=== PATIENT | male | born 1950 | race Caucasian/White ===

== ENCOUNTER 2017-04-21 11:09 | Day surgery (SDC) | payer OTHER ==
--- NOTE | 2017-04-21 08:34 | GHP ---
[f rep st] HISTORY AND PHYSICAL DATE OF ADMISSION: 04/21/2017 CURRENT COMPLAINT: Left knee fluid collection. HISTORY OF PRESENT ILLNESS: The patient is a 66-year-old male who has previously undergone bilateral total knee replacements. He had an infection noted on the right side. He has been on chronic antib iotics. Developed an area of fluctuance in the anterior portion of his knee medial to his patellar t endon. Aspiration revealed white blood cells but no organisms on Gram stain. However, he did subseq uently grow out Staph epidermidis. It was decided to take him to the operating room and do a formal irrigation and debridement. Allergies include hydrocodone. Current medications include atorvastatin , doxycycline, enalapril, metformin. Prior medical problems include diabetes, arthritis and sleep ap janelle. Prior surgeries include bilateral total knee replacements, right knee I and D, spine surgery, v ascular surgery to bilateral legs. He is a former smoker. Social drinker. On physical exam, pupils equal, round, and reactive to light. Chest clear to auscultation. Heart is regular rate and rhythm. Abdomen is soft and nontender. Left knee has a small area of fluctuant ma ss medial to the patellar tendon. ASSESSMENT AND PLAN: Patient is a rule out right knee infection. Plan is to take him to the operati ng room to undergo a formal irrigation and debridement. /[id number]/MODL
[~2017-04-21 11:09] MED LIST: ACETAMINOPHEN 500 MG TAB PO ONE; PREGABALIN 150 MG CAP PO ONE
[2017-04-21] MEDS ORDERED: PREGABALIN 150 MG CAP ONE (11:38)
[2017-04-21] MEDS ORDERED: ACETAMINOPHEN 500 MG TAB ONE (11:39)
[2017-04-21] MEDS ORDERED: LIDOCAINE 1% 2 ML INJ ONE (11:45)
[2017-04-21 11:56] VITALS: PULSE 66; TEMP 98.4
[2017-04-21] MEDS ORDERED: SODIUM HYPOCHLORITE (DAKINS 1/4 STR) 120 ML BTL TP ONE (12:00)
--- NOTE | 2017-04-21 12:15 | PDANEPAE ---
ANE History of Present Illness i&d knee ANE Past Medical History - Cardiovascular History Hx Hypertension: Yes Hx Arrhythmias: No Hx Chest Pain: No Hx Coronary Artery / Peripheral Vascular Disease: No Hx CHF / Valvular Disease: No Hx Palpitations: No Cardiovascular History Comment: NO CP. HIGH CHOL - Pulmonary History Hx COPD: No Hx Asthma/Reactive Airway Disease: No Hx Recent Upper Respiratory Infection: No Hx Oxygen in Use at Home: No Hx Sleep Apnea: No Sleep Apnea Screening Result - Last Documented: Positive Pulmonary History Comment: NO SOB W STAIRS - Neurologic History Hx Cerebrovascular Accident: No Hx Seizures: No Hx Dementia: No - Endocrine History Hx Diabetes: Yes Endocrine History Comment: type 2 - Renal History Hx Renal Disorders: No Renal History Comment: UTI [place], [place] - Liver History Hx Hepatic Disorders: No - Neurological & Psychiatric Hx Hx Neurological and Psychiatric Disorders: No - Cancer History Hx Cancer: No - Congenital Disorder History Hx Congenital Disorders: No - GI History Hx Gastrointestinal Disorders: No - Other Health History Other Health History: HX FX TIBIA, BRACE [place] '. PERM BRIDGES UPPER AND LOWER - Chronic Pain History Chronic Pain: No (R KNEE) - Surgical History Prior Surgeries: L TKA . L KNEE X2. L LEG VEIN STRIPPING X2. LAMI T3-4 ANE Review of Systems Review of Systems: - Exercise capacity METS (RN): 4 METS ANE Patient History - Allergies Allergies/Adverse Reactions: hydrocodone bitartrate [From [place]] Allergy (Severe, Verified 04/20/17 17:50) Hives - Home Medications Home Medications: Enalapril Maleate [Vasotec 20 MG (*)] 07/17/12 [Last Taken 04/21/17] metFORMIN HCL [Glucophage 1000 mg] 07/17/12 [Last Taken 04/20/17] Aspirin EC [Aspirin EC 81 mg (*)] 02/12/15 [Last Taken 04/14/17] Atorvastatin Calcium 04/20/17 [Last Taken 04/21/17] [place]-3 Fatty Acids [Fish Oil 1000 mg (*)] 04/20/17 [Last Taken 04/20/17] - NPO status NPO Since - Liquids (Date): 04/21/17 NPO Since - Liquids (Time): 09:15 NPO Since - Solids (Date): 04/21/17 NPO Since - Solids (Time): 04:00 - Smoking Hx Smoking Status: Former smoker - Family Anes Hx Family Hx Anesthesia Complications: NONE ANE Labs/Vital Signs - Labs Result Diagrams: 04/21/17 12:05 - Vital Signs Blood Pressure: 134/74 Heart Rate: 66 Respiratory Rate: 14 O2 Sat (%): 96 Height: 193.04 cm Weight: 119.295 kg ANE Physical Exam - Airway Mallampati Score: Class 2 Mouth exam: normal dental/mouth exam - Pulmonary Pulmonary: no respiratory distress - Cardiovascular Cardiovascular: regular rate and rhythym - ASA Status ASA Status: II, III ANE Anesthesia Plan Anesthesia Plan: GA w LMA
[2017-04-21] MEDS ORDERED: BUPIVACAINE/EPI 0.5% 30 ML SDV ONE (12:21)
[2017-04-21] MEDS ORDERED: MIDAZOLAM 2 MG/2 ML VIAL IVP ONE (12:31)
[2017-04-21] MEDS ORDERED: POLYMYXIN B SULFATE 500,000 UNIT/10 ML SYR IRR ONE (12:34)
[2017-04-21] MEDS ORDERED: BACITRACIN 50,000 UNITS/10 ML SYR IRR ONE (12:34)
[2017-04-21] MEDS ORDERED: LIDOCAINE 2% 5 ML SDV ONE (12:47)
[2017-04-21] MEDS ORDERED: PROPOFOL 200 MG/20 ML VIAL ONE (12:47)
[2017-04-21] MEDS ORDERED: DEXAMETHASONE 4 MG/ML VIAL ONE (12:47)
[2017-04-21] MEDS ORDERED: HYDROmorphONE/DILAUDID 2 MG/ML INJ ONE (12:47)
--- NOTE | 2017-04-21 13:43 | PDHPUP ---
History & Physical Update H&P update statement: This history and physical update is based on an assessment of the patient which was completed after admission or registration (within 24 hours), but prior to the surgery/procedure. H&P update: H&P reviewed & patient examined, no change in patient's condition since H&P completed
[2017-04-21] MEDS ORDERED: ceFAZolin 1 GM VIAL ONE ×2 (13:53)
[2017-04-21] MEDS ORDERED: ONDANSETRON 4 MG/2 ML VIAL ONE (14:08)
[2017-04-21] MEDS ORDERED: KETOROLAC 30 MG/1 ML SDV ONE (14:08)
[2017-04-21] MEDS ORDERED: ALBUTEROL 3 ML DEYVIAL IH PRN (14:38)
[2017-04-21] MEDS ORDERED: NALOXONE HCL 0.4 MG/ML INJ IVP PRN (14:38)
[2017-04-21] MEDS ORDERED: OXYCODONE/APAP 5/325 TAB PO PRN (14:38)
[2017-04-21] MEDS ORDERED: ONDANSETRON 4 MG/2 ML VIAL IVP PRN ×2 (14:38→14:57)
[2017-04-21] MEDS ORDERED: HYDROmorphONE/DILAUDID 2 MG/ML INJ IVP PRN (14:38)
[2017-04-21] MEDS ORDERED: MAGNESIUM HYDROXIDE 30 ML UDCUP PO PRN (14:57)
[2017-04-21] MEDS ORDERED: ONDANSETRON DISINTEGRATING 4 MG TAB PO PRN (14:57)
[2017-04-21] MEDS ORDERED: diphenhydrAMINE 25 MG CAP PO PRN (14:57)
[2017-04-21] MEDS ORDERED: CYCLOBENZAPRINE 10 MG TAB PO PRN (14:57)
[2017-04-21] MEDS ORDERED: PROMETHAZINE HCL 25 MG/ML INJ IVP PRN (14:57)
[2017-04-21] MEDS ORDERED: POLYETHYLENE GLYCOL 3350 17 GM PKT PO PRN (14:57)
[2017-04-21] MEDS ORDERED: BISACODYL 10 MG SUPP PR PRN (14:57)
[2017-04-21] MEDS ORDERED: KETOROLAC 30 MG/1 ML SDV IVP PRN (14:57)
[2017-04-21] MEDS ORDERED: METOCLOPRAMIDE 10 MG/2 ML VIAL IVP PRN (14:57)
[2017-04-21] MEDS ORDERED: oxyCODONE IR 5 MG TAB PO PRN (14:57)
[2017-04-21] MEDS ORDERED: TAPENTADOL HCL 50 MG TAB PO PRN (14:57)
[2017-04-21] MEDS ORDERED: LACTULOSE 20 GM/30 ML UDCUP PO PRN (14:57)
[2017-04-21] MEDS ORDERED: PROMETHAZINE HCL 25 MG SUPPR PR PRN (14:57)
[2017-04-21] MEDS ORDERED: DIPHENOXYLATE/ATROPINE LOMOTIL 1 TAB PO PRN (14:57)
[2017-04-21] MEDS ORDERED: TEMAZEPAM 15 MG CAP PO PRN (14:57)
--- NOTE | 2017-04-21 14:57 | POSTOPPROG ---
Post Op Note Date of Operation: 04/21/17 Surgeon: Karoline Hayes Anesthesiologist: gabriel Anesthesia: LMA Pre-op Diagnosis: l knee infxn Procedure: l knee I&D Inf/Abcess present in the surg proc area at time of surgery?: Yes Depth: Deep Incisional (Fascial) EBL: 100-500 Drains: [place]
[2017-04-21] MEDS ORDERED: LR 1,000 ML IV SCH (15:00)
--- NOTE | 2017-04-21 15:00 | POSTANESTH ---
Post Anesthetic Evaluation Cardiovascular Status: Normal, Stable Respiratory Status: Normal, Stable Level of Consciousness/Mental Status: Can Participate in Eval Pain Control: Adequate, Prn Tx Ordered Nausea/Vomiting Control: Adequate, Prn Tx Ordered Complications Possibly Related to Anesthesia: None Noted
[2017-04-21] MEDS ORDERED: cefTRIAXone 2 GM in STERILE WATER INJ 20 ML IV ONE (15:45)
--- NOTE | 2017-04-21 15:46 | GOP ---
[f rep st] OPERATIVE REPORT DATE OF OPERATION: 04/21/2017 SURGEON: Karoline Hayes MD ANESTHESIA: LMA. PREOPERATIVE DIAGNOSIS: Left knee infection. POSTOPERATIVE DIAGNOSIS: Left knee infection. PROCEDURE PERFORMED: Irrigation and debridement of left knee. FINDINGS: INDICATIONS: This is a 66-year-old male, who has had a remote history of a left total knee replaceme nt. He is on chronic antibiotic suppression secondary to a right knee infection over a year ago. He developed an area of fluctuance on the anterior portion of the knee, was aspirated and found to have Staph epidermidis grow out on cultures, decided do a formal irrigation and debridement. DESCRIPTION OF PROCEDURE: Patient brought to the operating room after the left side had been identif ied as correct side by the patient, nurse and physician. Once in the operating room, he had a tourni quet placed around the upper portion of the left thigh after going to sleep using LMA. He then had t he left lower extremity sterilely prepped and draped in usual fashion using GSI solution. Once prepp ed and draped, the limb was elevated for 2 minutes and the tourniquet inflated to 250 mmHg. Using th e prior incision at its anterior portion, sharp dissection was carried down through the skin and subc utaneous layers, identifying the extensor mechanism. Dissection was then carried medially toward the area of fluctuance. He was found to have an area of cloudy serous fluid. Cultures were taken and s ent to the lab. Further exploration revealed a sinus going medially in the subcutaneous tissue as we ll as an open area in the anterior medial portion of the knee. The area was encapsulated and there w as no found access into the actual knee joint itself. The areas around the capsule were debrided usi ng a curette until removing all of the fibrinous tissue. The wound was then thoroughly irrigated wit h 1 L of Dakin's solution into the sinuses and in the open area, and then 3 L of antibiotic solution were irrigated through the area also. One quarter-inch Carol Ann drain was then placed along the media l sinus, was sewn into place outside of the actual wound. The wound was then closed in layers to inc lude 0 Vicryl suture for the extensor mechanism that was opened, 3-0 Vicryl suture for the subcutaneo us layers, and 4-0 Monocryl suture in a running subcuticular stitch for the skin. The wound was dres sed with Steri-Strips, Xeroform, 4x4s, and Kerlix. The tourniquet had been deflated already at 30 mi nutes. Leg was completely undraped in the operating room, tourniquet removed from the thigh, and an Michael wrap placed around the knee. The patient was then woken up, extubated, transferred onto a [facility], and sent to recovery room in good condition. TOURNIQUET TIME: 30 minutes. /[id number]/MODL
[2017-04-21 15:49] VITALS: RESP 12
[2017-04-21 16:03] VITALS: BP 149/72
[2017-04-21 16:23] VITALS: O2SAT 92
[2017-04-21] MEDS ORDERED: ACETAMINOPHEN 325 MG TAB PO SCH (18:00)
[2017-04-21] MEDS ORDERED: traMADol 50 MG TAB PO SCH (18:00)
[2017-04-21] MEDS ORDERED: FAMOTIDINE 20 MG TAB PO SCH (21:00)
[2017-04-21] MEDS ORDERED: SENNOSIDES/DOCUSATE SODIUM TAB PO SCH (21:00)
== END 2017-04-21 16:55 | disposition home or self-care (01) ==
LOC: FSGY 11:09
PROVIDERS: ATTEND Orthopaedic Surgery
PROC: 0J9P0ZZ Drainage of Left Lower Leg Subcutaneous Tissue and Fascia, Open Approach (ICD-10-PCS; principal; 2017-04-21 12:45)
DX: T84.54XA Infection and inflammatory reaction due to internal left knee prosthesis, initial encounter (principal); Z96.652 Presence of left artificial knee joint; Z87.891 Personal history of nicotine dependence
CPT/HCPCS: J0690; J0696; J1100; J1170; J1885; J2250; J2405; J2704

== ENCOUNTER 2017-05-09 09:48 | Inpatient (IN) | payer OTHER ==
--- NOTE | 2017-05-08 15:24 | GHP ---
[f rep st] PREOP HISTORY AND PHYSICAL DATE OF ADMISSION: 05/09/2017 DIAGNOSIS: Left knee infection with possible infection of left total knee replacement. PLANNED SURGERY: Left knee I and D with possible removal of total knee replacement and implantation of antibiotic spacer. HISTORY OF PRESENT ILLNESS: Patient is a 66-year-old male with a long history of left knee pain. Se veral weeks ago, he underwent an I and D procedure for an infection in the soft tissues of the left k nee. Subsequently, he continued to have drainage through the FRANCISCA drain of purulent fluid, and it was felt the infection could be spreading toward the knee replacement or may even involve the joint itsel f. After 2 weeks, the decision was made to proceed forward with a second I and D and possibly to exp lant the total knee replacement and to place an antibiotic spacer. The patient is in agreement with this plan. PAST SURGICAL HISTORY: History of right knee replacement, left knee replacement, removal of a synovi al plica, history of low back surgery. PAST MEDICAL HISTORY: Hypertension, hypercholesterolemia, type 2 diabetes, and obesity. MEDICATIONS: Atorvastatin, cephalexin, doxycycline, enalapril, metformin, oxycodone, and tramadol. SOCIAL HISTORY: No alcohol, tobacco, or drug use. PHYSICAL EXAM: GENERAL: He is alert and oriented. NECK: Supple. No carotid bruits are heard. CA RDIAC: Regular rate and rhythm. Normal S1, S2. PULMONARY: Lungs are clear bilaterally. ABDOMEN: Normoactive bowel sounds. Nontender, nondistended. EXTREMITIES: The left knee shows the incision from prior surgery to be healing well. There continues to be purulent drainage from the inferior por valentina of the incision where it was left open. Range of motion is full. There is moderate diffuse swel ling throughout the leg. There is no evidence of DVT. He is neurovascularly intact. ASSESSMENT AND PLAN: Patient presents with a soft tissue infection, possibly within the joint. Afte r a course of conservative treatment including a long course of antibiotics, we are now proceeding fo rward with a second incision and drainage procedure and possible explantation of the total knee repla cement. This was all discussed with the patient in detail, and he accepts the risks and benefits of the surgery. /[id number]/MODL
[2017-05-09] MEDS ORDERED: SODIUM HYPOCHLORITE (DAKINS 1/4 STR) 120 ML BTL IRR PRN (10:00)
[2017-05-09] MEDS ORDERED: LR 1,000 ML IV ONE (10:12)
[2017-05-09] MEDS ORDERED: LIDOCAINE 1% 2 ML INJ ID PRN (10:12)
[2017-05-09] MEDS ORDERED: POLYMYXIN B SULFATE 500,000 UNIT/10 ML SYR IRR ONE ×2 (11:05→11:09)
[2017-05-09] MEDS ORDERED: BACITRACIN 50,000 UNITS/10 ML SYR IRR ONE (11:05)
[2017-05-09] MEDS ORDERED: BUPIVACAINE/EPI 0.5% 30 ML SDV ONE (11:05)
[2017-05-09] MEDS ORDERED: MIDAZOLAM 2 MG/2 ML VIAL IVP ONE (11:56)
[2017-05-09] MEDS ORDERED: HYDROmorphONE/DILAUDID 1 MG/ML INJ IVP PRN (11:57)
[2017-05-09] MEDS ORDERED: DEXAMETHASONE 4 MG/ML VIAL IVP PRN (11:57)
[2017-05-09] MEDS ORDERED: ALBUTEROL 3 ML DEYVIAL IH PRN (11:57)
[2017-05-09] MEDS ORDERED: NALOXONE HCL 0.4 MG/ML INJ IVP PRN (11:57)
[2017-05-09] MEDS ORDERED: ONDANSETRON 4 MG/2 ML VIAL IVP PRN ×2 (11:57→14:23)
[2017-05-09] MEDS ORDERED: oxyCODONE IR 5 MG TAB PO PRN ×2 (11:57→14:23)
[2017-05-09] MEDS ORDERED: MIDAZOLAM 2 MG/2 ML VIAL ONE (11:58)
--- NOTE | 2017-05-09 11:59 | PDANEPAE ---
ANE History of Present Illness Left Knee I&D ANE Past Medical History - Cardiovascular History Hx Hypertension: Yes Hx Arrhythmias: No Hx Chest Pain: No Hx Coronary Artery / Peripheral Vascular Disease: No Hx CHF / Valvular Disease: No Hx Palpitations: No Cardiovascular History Comment: HIGH CHOL - Pulmonary History Hx COPD: No Hx Asthma/Reactive Airway Disease: No Hx Recent Upper Respiratory Infection: No Hx Oxygen in Use at Home: No Hx Sleep Apnea: No Sleep Apnea Screening Result - Last Documented: Positive Pulmonary History Comment: gregory triggers - Neurologic History Hx Cerebrovascular Accident: No Hx Seizures: No Hx Dementia: No Neurologic History Comment: hx of lami - Endocrine History Hx Diabetes: Yes Endocrine History Comment: type 2 - Renal History Hx Renal Disorders: No Renal History Comment: hx of uti's - Liver History Hx Hepatic Disorders: No - Neurological & Psychiatric Hx Hx Neurological and Psychiatric Disorders: No - Cancer History Hx Cancer: No - Congenital Disorder History Hx Congenital Disorders: No - GI History Hx Gastrointestinal Disorders: No - Other Health History Other Health History: wears glasses. PERM BRIDGES UPPER AND LOWER - Chronic Pain History Chronic Pain: Yes (left knee) - Surgical History Prior Surgeries: 04/21/17 left knee I&D with mary. right TKA 07/2013. L TKA ' 13. L KNEE X2. L LEG VEIN STRIPPING X2. LAMI T3-4 ANE Review of Systems Review of Systems: - Exercise capacity METS (RN): 4 METS ANE Patient History - Allergies Allergies/Adverse Reactions: hydrocodone bitartrate [From [place]] Allergy (Verified 05/08/17 16:44) Vomiting - Home Medications Home Medications: Enalapril Maleate [Vasotec 20 MG (*)] 07/17/12 [Last Taken 05/09/17 06:00] metFORMIN HCL [Glucophage 1000 mg] BID 07/17/12 [Last Taken 05/09/17 06:00] Aspirin EC [Aspirin EC 81 mg (*)] 02/12/15 [Last Taken 2 Days Ago ~05/07/17] Atorvastatin Calcium 04/20/17 [Last Taken 05/09/17 06:00] [place]-3 Fatty Acids [Fish Oil 1000 mg (*)] 04/20/17 [Last Taken 2 Days Ago ~02/23] Doxycycline Monohydrate 05/09/17 [Last Taken 05/09/17 06:00] - NPO status NPO Since - Liquids (Date): 05/09/17 NPO Since - Liquids (Time): 08:00 NPO Since - Solids (Date): 05/08/17 NPO Since - Solids (Time): 19:00 - Smoking Hx Smoking Status: Former smoker - Family Anes Hx Family Hx Anesthesia Complications: NONE ANE Labs/Vital Signs - Vital Signs Blood Pressure: 132/72 Heart Rate: 58 Respiratory Rate: 18 O2 Sat (%): 97 Height: 193.04 cm Weight: 121.4 kg ANE Physical Exam - Airway Neck exam: FROM Mallampati Score: Class 2 Mouth exam: normal dental/mouth exam - Pulmonary Pulmonary: clear to auscultation - Cardiovascular Cardiovascular: regular rate and rhythym - ASA Status ASA Status: II ANE Anesthesia Plan Anesthesia Plan: general endotracheal anesthesia
[2017-05-09] MEDS ORDERED: fentaNYL 100 MCG/2 ML INJ ONE ×4 (12:06→15:51)
[2017-05-09] MEDS ORDERED: PROPOFOL 200 MG/20 ML VIAL ONE (12:07)
[2017-05-09] MEDS ORDERED: ONDANSETRON 4 MG/2 ML VIAL ONE (12:13)
[2017-05-09] MEDS ORDERED: RANITIDINE 50 MG/2 ML VIAL ONE (12:14)
[2017-05-09] MEDS ORDERED: HYDROmorphONE/DILAUDID 2 MG/ML INJ ONE ×2 (12:52→13:08)
[2017-05-09] MEDS ORDERED: ceFAZolin 1 GM VIAL ONE ×2 (12:56)
[2017-05-09] MEDS ORDERED: HYDROGEN PEROXIDE 236 ML BOTTLE TP ONE (13:17)
[2017-05-09] MEDS ORDERED: POLYETHYLENE GLYCOL 3350 17 GM PKT PO PRN (14:23)
[2017-05-09] MEDS ORDERED: PROMETHAZINE HCL 25 MG/ML INJ IVP PRN (14:23)
[2017-05-09] MEDS ORDERED: MAGNESIUM HYDROXIDE 30 ML UDCUP PO PRN (14:23)
[2017-05-09] MEDS ORDERED: ONDANSETRON DISINTEGRATING 4 MG TAB PO PRN (14:23)
[2017-05-09] MEDS ORDERED: diphenhydrAMINE 25 MG CAP PO PRN (14:23)
[2017-05-09] MEDS ORDERED: METOCLOPRAMIDE 10 MG/2 ML VIAL IVP PRN (14:23)
[2017-05-09] MEDS ORDERED: BISACODYL 10 MG SUPP PR PRN (14:23)
[2017-05-09] MEDS ORDERED: LACTULOSE 20 GM/30 ML UDCUP PO PRN (14:23)
[2017-05-09] MEDS ORDERED: TEMAZEPAM 15 MG CAP PO PRN (14:23)
[2017-05-09] MEDS ORDERED: TAPENTADOL HCL 50 MG TAB PO PRN (14:23)
[2017-05-09] MEDS ORDERED: DIPHENOXYLATE/ATROPINE LOMOTIL 1 TAB PO PRN (14:23)
[2017-05-09] MEDS ORDERED: CYCLOBENZAPRINE 10 MG TAB PO PRN (14:23)
[2017-05-09] MEDS ORDERED: PROMETHAZINE HCL 25 MG SUPPR PR PRN (14:23)
--- NOTE | 2017-05-09 14:23 | POSTOPPROG ---
Post Op Note Date of Operation: 05/09/17 Surgeon: Karoline Hayes Senior Information Security Consultant: trashante Anesthesiologist: daniel Anesthesia: Epidural, IV Sedation Pre-op Diagnosis: l knee infection Procedure: I&D l knee Inf/Abcess present in the surg proc area at time of surgery?: Yes Depth: Deep Incisional (Fascial) EBL: 100-500
[2017-05-09] MEDS ORDERED: LR 1,000 ML IV SCH (14:30)
[2017-05-09] MEDS: fentaNYL 100 MCG/2 ML INJ IVP PRN ×3 (14:51→15:56)
[2017-05-09] MEDS ORDERED: LORazepam 2 MG/ML INJ IVP PRN (15:03)
[2017-05-09] MEDS ORDERED: ROPIVACAINE HCL 150 MG/30 ML INJ ONE (16:10)
--- NOTE | 2017-05-09 17:50 | PCMIDPN ---
Assessment/Plan: Left TKA: Possible septic arthritis versus marcelo knee abscess s/p washout today with minimal signs of infection in joint space. --empiric IV Ancef while await culture results --if joint cultures are positive plan repeat washout Medications Cefazolin 2 g IV Q 8 Microbiology all pending 05/09/17 joint aspirate 05/09/17 joint swab x2 05/09/17 joint tissue Subjective: Significantly more left knee pain postoperatively than compared to last surgery Mild nausea Objective: Vital Signs Temp Pulse Resp BP Pulse Ox 36.8 C 75 18 152/81 H 100 05/09/17 17:16 05/09/17 17:16 05/09/17 17:16 05/09/17 17:16 05/09/17 17:16 Microbiology 05/09/17 12:36 Gram Stain - Final Knee - Tissue 05/09/17 12:36 Gram Stain - Final Knee - Eswab 05/09/17 12:36 Gram Stain - Final Knee - Eswab 05/09/17 12:36 Gram Stain - Final Knee - Aspirate 05/08/17 05/09/17 05/10/17 05:59 05:59 05:59 Output Total 100 Balance -100 - Physical Exam General Appearance: alert, no apparent distress EENT: normal ENT inspection, pharynx normal, No scleral icterus Respiratory: No accessory muscle use Extremities: other (Left lower extremity with dressing and splint in place) Neuro/Psych: alert, normal mood/affect, oriented x 3 - Time Spent With Patient Time Spent with Patient: greater than 25 minutes (Reviewed surgical finding based on what Dr. Hayes reported and plans for therapy and parameters surrounding need for repeat surgery) Time Spent with Patient: Greater than 25 minutes spent on this patients care, greater than 50% of time spent counseling, educating, and coordinating care regarding the above mentioned plan. ICD10 Worksheet Patient Problems: Problems Problem Status Onset Arthritis of knee, right Acute Septic arthritis of knee, right Acute
[2017-05-09] MEDS: ACETAMINOPHEN 325 MG TAB PO SCH (18:42)
[2017-05-09] MEDS: traMADol 50 MG TAB PO SCH (18:43)
[2017-05-09] MEDS: KETOROLAC 30 MG/1 ML SDV IVP SCH (18:44)
[2017-05-09] MEDS: FAMOTIDINE 20 MG TAB PO SCH (20:22)
[2017-05-09] MEDS: SENNOSIDES/DOCUSATE SODIUM TAB PO SCH (20:22)
[2017-05-09] MEDS: ceFAZolin 2 GM/SWFI 2 GM/20 ML SYR IVP SCH (20:22)
[2017-05-09] MEDS ORDERED: ceFAZolin 2 GM/DEXTROSE 100 ML IV SCH (22:00)
[2017-05-10] MEDS: traMADol 50 MG TAB PO SCH ×4 (00:32→18:47)
[2017-05-10] MEDS: ACETAMINOPHEN 325 MG TAB PO SCH ×4 (00:32→18:46)
[2017-05-10] MEDS: KETOROLAC 30 MG/1 ML SDV IVP SCH ×4 (00:32→18:47)
--- NOTE | 2017-05-10 02:55 | GOP ---
[f rep st] OPERATIVE REPORT DATE OF OPERATION: 05/09/2017 SURGEON: Karoline Hayes MD MAINTENANCE MECHANIC: JEFFERSON CoffmanA, LSA, whose presence was medically necessary. ANESTHESIA: By LMA. PREOPERATIVE DIAGNOSIS: Right knee infection. POSTOPERATIVE DIAGNOSIS: Right knee infection. PROCEDURE PERFORMED: Left total knee replacement incision and debridement. FINDINGS: INDICATIONS: This is a 66-year-old male with a complicated history of left knee drainage. He denies any pain or any fevers. He has undergone a prior irrigation and debridement to the knee that was echeverria perficial, but continues to have significant amount of drainage. It is decided to repeat the incisio n and debridement. DESCRIPTION OF PROCEDURE: Patient was brought to the operating room after the left side had been derrick ntified as the correct side by the patient, nurse, and physician. Once in the operating room, he was placed under general anesthesia using an LMA. Once asleep, a tourniquet placed around the upper por tion of the left thigh, and the left lower extremity sterilely prepped and draped in the usual fashio n using a GSI solution. Once prepped and draped, limb was elevated for 2 minutes, then tourniquet wa s inflated to 250 mmHg. Using the prior scar, a linear incision was made on the anterior portion of the knee. The superficia l portion of his prior I and D was found, was able to be debrided easily. There was noted to be some healing blood and scar tissue in the area of the prior sinuses that had previously been noted previo usly but noted were noted to be healing there was found to be 1 small sinus at the inferior portion o f the wound that appeared to go inside the joint. Therefore, a medial parapatellar incision was done through the extensor mechanism, with the patella brought to the side, but not everted. There was no yonis to be no purulence within the knee. A prior aspiration in the knee prior to opening the knee had been done and found to have bloody fluid, but this was sent off for cultures, as well as swabs being taken of the subcutaneous tissue. Tissue was then debrided from the intercondylar notch and that wa s also sent for culture and sensitivities. A thorough synovectomy was done. There were no pockets of pus. There was no inflammatory tissue wit hin the knee beyond the normal scarring associated with the total knee. Therefore, it was decided to thoroughly irrigate the wound. Therefore, the polyethylene tray was removed from the tibial compone nt. The wound was thoroughly irrigated with Castile soap solution and then washed with a Dakins solu tion and then with 3 L of antibiotic solution through and around the knee and the soft tissue, while the old polyethylene was soaked in hydrogen peroxide. The old polyethylene was then put back into th e tibial tray. The wound was closed with 0 Vicryl suture for the extensor mechanism, an 0 Vicryl and 2-0 Vicryl suture for the subcutaneous layers, and corina for the skin. The tourniquet was deflated at 96 minutes. Leg was dressed with Xeroform, 4 x 4's, wrapped in Kerlix . Leg was completely undraped in the operating room, tourniquet removed from the thigh, and an Michael w rap placed around the knee. He was placed in a knee immobilizer locked at 0 degrees. He was woken u p, extubated, transferred onto a stretcher, and sent to recovery room in good condition. SURGEON: Karoline Hayes MD TOURNIQUET TIME: 96 minutes. /[id number]/MODL
[2017-05-10] MEDS: ceFAZolin 2 GM/SWFI 2 GM/20 ML SYR IVP SCH ×3 (05:08→21:24)
[2017-05-10] MEDS: ENOXAPARIN 40 MG/0.4 ML SYR SC SCH (10:00)
[2017-05-10] MEDS: SENNOSIDES/DOCUSATE SODIUM TAB PO SCH ×2 (10:00→21:23)
[2017-05-10] MEDS: FAMOTIDINE 20 MG TAB PO SCH ×2 (10:00→21:23)
--- NOTE | 2017-05-10 11:21 | ASMTCMCOM ---
CM Note CM Note Notes: Patient admitted for an I&D of his left knee. Cultures are pending, and patient is being treated empirically with IV Ancef. ID is following. Patient is normally independent, lives with . PT/OT have been ordered. Case Management will follow for discharge planning. Date Signed: 05/10/2017 11:20 AM Electronically Signed By:Radhika Anaya RN
--- NOTE | 2017-05-10 11:24 | PCMIDPN ---
Assessment/Plan: Left TKA: Possible septic arthritis versus marcelo knee abscess s/p washout 4/3 with minimal signs of infection in joint space. --empiric IV Ancef while await culture results --joint cx are negative at 18 hours --continue to monitor Medications Cefazolin 2 g IV Q 8, #1 Microbiology gram stains all neg for organisms; cx neg at 18 hours 05/09/17 joint aspirate 05/09/17 joint swab x2 05/09/17 joint tissue Subjective: mild L knee pain (better than yesterday) Objective: Vital Signs Temp Pulse Resp BP Pulse Ox 36.9 C 66 15 120/62 95 05/10/17 07:48 05/10/17 07:48 05/10/17 07:48 05/10/17 07:48 05/10/17 07:48 Microbiology 05/09/17 12:36 Gram Stain - Final Knee - Tissue 05/09/17 12:36 Gram Stain - Final Knee - Eswab 05/09/17 12:36 Gram Stain - Final Knee - Eswab 05/09/17 12:36 Gram Stain - Final Knee - Aspirate Laboratory Results 05/10/17 05:00 05/09/17 05/10/17 05/11/17 05:59 05:59 05:59 Intake Total 1000 Output Total 1500 Balance -500 - Physical Exam General Appearance: alert, no apparent distress Respiratory: No accessory muscle use Extremities: other (L knee incision without erythema, small amount of oozing blood. Minimal warmth (improved compared to pre-op), no erythema, corina in place) Skin: No rash Neuro/Psych: alert, normal mood/affect, oriented x 3 - Time Spent With Patient Time Spent with Patient: greater than 25 minutes Time Spent with Patient: Greater than 25 minutes spent on this patients care, greater than 50% of time spent counseling, educating, and coordinating care regarding the above mentioned plan. ICD10 Worksheet Patient Problems: Problems Problem Status Onset Arthritis of knee, right Acute Septic arthritis of knee, right Acute
--- NOTE | 2017-05-10 12:59 | SOAPPROG ---
SOAP Progress Note Assessment/Plan: Assessment: Plan: 05/10/17 12:58 - no changes, restart metformin, will follow up tomorrow Subjective: Doing well, pain controlled, no issues Objective: Vital Signs Temp Pulse Resp BP Pulse Ox 37.2 C 75 16 123/58 H 95 05/10/17 12:00 05/10/17 12:00 05/10/17 12:00 05/10/17 12:00 05/10/17 12:00 Microbiology 05/09/17 12:36 Gram Stain - Final Knee - Tissue 05/09/17 12:36 Gram Stain - Final Knee - Eswab 05/09/17 12:36 Gram Stain - Final Knee - Eswab 05/09/17 12:36 Gram Stain - Final Knee - Aspirate Laboratory Results 05/10/17 05:00 05/09/17 05/10/17 05/11/17 05:59 05:59 05:59 Intake Total 1000 Output Total 1500 Balance -500 dressing cdi, calf NT, no swelling, NVI distally - Time Spent With Patient Time Spent With Patient: 15 - Pending Discharge Pending Discharge Within 24 Hours: No Pending Discharge Within 48 Hours: No ICD10 Worksheet Patient Problems: Problems Problem Status Onset Arthritis of knee, right Acute Septic arthritis of knee, right Acute
[2017-05-10] MEDS: metFORMIN HCL 500 MG TAB PO SCH (18:46)
[2017-05-11] MEDS: ACETAMINOPHEN 325 MG TAB PO SCH ×4 (01:31→18:19)
[2017-05-11] MEDS: KETOROLAC 30 MG/1 ML SDV IVP SCH ×4 (01:32→18:20)
[2017-05-11] MEDS: traMADol 50 MG TAB PO SCH ×4 (01:32→18:19)
[2017-05-11] MEDS: ceFAZolin 2 GM/SWFI 2 GM/20 ML SYR IVP SCH ×3 (06:04→20:48)
[2017-05-11] MEDS: ENOXAPARIN 40 MG/0.4 ML SYR SC SCH (07:53)
[2017-05-11] MEDS: FAMOTIDINE 20 MG TAB PO SCH ×2 (07:53→20:48)
[2017-05-11] MEDS: SENNOSIDES/DOCUSATE SODIUM TAB PO SCH ×2 (07:53→20:48)
[2017-05-11] MEDS: metFORMIN HCL 500 MG TAB PO SCH ×2 (07:53→18:18)
[2017-05-11] MEDS ORDERED: ALTEPLASE 2 MG VIAL IVP PRN (12:41)
--- NOTE | 2017-05-11 12:43 | PDIAF ---
- Diagnosis Diagnosis: Septic L TKA Code Status: Full Code - Medication Management Discharge Medications: Medications to Continue on Transfer Aspirin EC [Aspirin EC 81 mg (*)] 81 mg PO DAILY 02/12/15 [Last Taken 05/07/17] [place]-3 Fatty Acids [Fish Oil 1000 mg (*)] 1,000 mg PO DAILY 04/20/17 [Last Taken 05/07/17] Atorvastatin Calcium [Lipitor 40 mg (*)] 40 mg PO DAILY 05/09/17 [Last Taken 04/23] Doxycycline Hyclate [Vibramycin 100 MG (*)] 100 mg PO BID 05/09/17 [Last Taken 05/09/17 AM DOSE] Enalapril Maleate [Vasotec 20 MG (*)] 20 mg PO DAILY 05/09/17 [Last Taken ] metFORMIN HCL [Glucophage 500 mg (*)] 1,000 mg PO BIDMEAL 05/09/17 [Last Taken 05/08/17] traMADol [Ultram 50 mg (*)] 50 mg PO Q6H PRN 05/09/17 [Last Taken Unknown] [facility] Antibiotics: cefazolin 6gm IV continuous infusion [facility] Antibiotic Stop Date: 06/22/17 Discharge Medications: Refer to the Discharge Home Medication list for PRN reason. PICC Care - Routine: Yes - Orders Services needed: Home Care, Registered Nurse Home Care Face to Face: I certify that this patient was under my care and that I had the required [id number] encounter meeting the encounter requirements on the discharge day. My findings support the fact that the patient is homebound as defined in Home Care Face to Face Continued: CMS Chapter 7 Medicare Benefits Manual 30.1.1 , The condition of the patient is such that there exists a normal inability to leave home and consequently, leaving home would require a considerable and taxing effort. Isolation Type: None - Labs/Radiology CBC w/diff Date: 05/15/17 (every monday) CMP Date: 05/15/17 (every monday) CRP Date: 05/15/17 (every monday) Call or Fax Lab and Imaging Results to: Kimberly Lockett MD [phone] - Follow Up Care Current Providers and Referrals: MERLY PRYOR [Other] Karoline Hayes MD [Medical Doctor] - Kimberly Lockett MD [Medical Doctor] -
[2017-05-11] MEDS ORDERED: 1/2 NS 1,000 ML IV SCH (12:45)
--- NOTE | 2017-05-11 12:45 | SOAPPROG ---
SOAP Progress Note Assessment/Plan: Assessment: Plan: 05/10/17 12:58 - pt is on sched for sx tomorrow - npo midnight tonight 05/11/17 12:44 Subjective: Doing well, minimal pain. OOB today no issues Objective: Vital Signs Temp Pulse Resp BP Pulse Ox 36.9 C 71 16 131/76 H 98 05/11/17 11:45 05/11/17 11:45 05/11/17 11:45 05/11/17 11:45 05/11/17 11:45 Microbiology 05/09/17 12:36 Gram Stain - Final Knee - Tissue 05/09/17 12:36 Gram Stain - Final Knee - Eswab 05/09/17 12:36 Gram Stain - Final Knee - Eswab 05/09/17 12:36 Gram Stain - Final Knee - Aspirate Laboratory Results 05/11/17 05:44 05/10/17 05/11/17 05/12/17 05:59 05:59 05:59 Intake Total 1000 1790 350 Output Total 1500 1550 Balance -500 240 350 Dressing CDI, nothing on GM stain or cultures yet, NVI distally, no DVT - Time Spent With Patient Time Spent With Patient: 10 - Pending Discharge Pending Discharge Within 24 Hours: No Pending Discharge Within 48 Hours: No ICD10 Worksheet Patient Problems: Problems Problem Status Onset Arthritis of knee, right Acute Septic arthritis of knee, right Acute
--- NOTE | 2017-05-11 12:52 | PCMIDPN ---
Assessment/Plan: Left TKA: Possible septic arthritis versus marcelo knee abscess s/p washout / with minimal signs of infection in joint space. Nonetheless, very high risk situation and plan to treat as if septic arthritis due to s. epi ID'd on prior cultures --continue IV Ancef, prior cultures with s. epi oxacillin susceptible --repeat washout tomorrow --plan 4-6 weeks IV antibiotics, PICC ordered --check full labs in AM Medications Cefazolin 2 g IV Q 8, #2 Microbiology gram stains all neg for organisms; cx neg at 48hours 05/09/17 joint aspirate 05/09/17 joint swab x2 05/09/17 joint tissue Subjective: feeling well, less L knee pain Objective: Vital Signs Temp Pulse Resp BP Pulse Ox 36.9 C 71 16 131/76 H 98 05/11/17 11:45 05/11/17 11:45 05/11/17 11:45 05/11/17 11:45 05/11/17 11:45 Microbiology 05/09/17 12:36 Gram Stain - Final Knee - Tissue 05/09/17 12:36 Gram Stain - Final Knee - Eswab 05/09/17 12:36 Gram Stain - Final Knee - Eswab 05/09/17 12:36 Gram Stain - Final Knee - Aspirate Laboratory Results 05/11/17 05:44 05/10/17 05/11/17 05/12/17 05:59 05:59 05:59 Intake Total 1000 1790 350 Output Total 1500 1550 Balance -500 240 350 - Physical Exam General Appearance: alert, no apparent distress EENT: normal ENT inspection Respiratory: No accessory muscle use Extremities: swelling (expected post op swelling L leg) Skin: normal color, No pallor, No rash Neuro/Psych: alert, normal mood/affect, oriented x 3 - Time Spent With Patient Time Spent with Patient: greater than 25 minutes (care coordinated with Dr. Hayes ) Time Spent with Patient: Greater than 25 minutes spent on this patients care, greater than 50% of time spent counseling, educating, and coordinating care regarding the above mentioned plan. ICD10 Worksheet Patient Problems: Problems Problem Status Onset Arthritis of knee, right Acute Septic arthritis of knee, right Acute
--- NOTE | 2017-05-11 15:51 | ASMTCMCOM ---
CM Note CM Note Notes: Pt will need home IV antibiotics, current transfer of care indicates cefaxoline IV continuous infusion. Referral sent to [facility] who can accept pt. Pt may also need home OT in addition to home health RN, PT rec home. CM to follow. Date Signed: 05/11/2017 03:46 PM Electronically Signed By:ANEUDY Lopez
--- NOTE | 2017-05-11 19:54 | PDMN ---
Medical Necessity Medical necessity: S560 TKA I/D on 05/09/17, M605- septic arthritis: 3 days: now with possible septic arthritis vs. periknee abscess S/P washout - ongoing med nec care: repeat washout 05/12/17 cont. IV abx, high risk per ID
[2017-05-12] MEDS: ACETAMINOPHEN 325 MG TAB PO SCH ×4 (01:38→20:55)
[2017-05-12] MEDS: KETOROLAC 30 MG/1 ML SDV IVP SCH ×5 (01:39→20:43)
[2017-05-12] MEDS: traMADol 50 MG TAB PO SCH ×4 (01:39→20:42)
[2017-05-12 05:21] LABS: PLATELET COUNT 202 10^3/uL (150-400)
[2017-05-12] MEDS: ceFAZolin 2 GM/SWFI 2 GM/20 ML SYR IVP SCH ×3 (06:10→20:44)
[2017-05-12] MEDS ORDERED: LIDOCAINE 1% 300 MG/30 ML SDV ONE (09:16)
--- NOTE | 2017-05-12 10:18 | PCMIDPN ---
Assessment/Plan: 1. 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 Hopefully home on continuous infusion Ancef at some point this weekend. Will likely need 6 weeks of therapy postoperatively. Reviewed laboratories with patient today including his elevated CRP and reason for this and the fact that cultures from May 09 are negative. Subjective: In good spirits. Making jokes. No diarrhea or constipation or rash. Going for repeat washout of his left knee today. Objective: Ancef 2 g IV q.8 hours day 3 Afebrile Vital Signs Temp Pulse Resp BP Pulse Ox 36.9 C 66 16 130/73 H 96 05/12/17 07:40 05/12/17 07:40 05/12/17 07:40 05/12/17 07:40 05/12/17 07:40 Microbiology 05/09/17 12:36 Gram Stain - Final Knee - Tissue 05/09/17 12:36 Gram Stain - Final Knee - Eswab 05/09/17 12:36 Gram Stain - Final Knee - Eswab 05/09/17 12:36 Gram Stain - Final Knee - Aspirate Laboratory Results 05/12/17 05:06 05/12/17 05:06 05/11/17 05/12/17 05/13/17 05:59 05:59 05:59 Intake Total 1790 1200 Output Total 1550 900 Balance 240 300 C-Reactive Protein 85.9 mg/L (<10.0) H 05/12/17 05:06 All cultures and Gram stain from the knee from May 09 are no growth and negative. Previous cultures from April with Staphylococcus epidermidis , cefazolin STEVEN less than 2 - Physical Exam General Appearance: alert, no apparent distress EENT: pharynx normal, No thrush Respiratory: lungs clear Cardiac/Chest: regular rate, rhythm Extremities: other (PICC line right upper extremity looks fine. Left knee wrapped, I did not take this down.) Abdomen: non-tender, soft Skin: No rash ICD10 Worksheet Patient Problems: Problems Problem Status Onset Arthritis of knee, right Acute Septic arthritis of knee, right Acute
[2017-05-12] MEDS: metFORMIN HCL 500 MG TAB PO SCH ×2 (11:01→20:46)
[2017-05-12] MEDS: ENOXAPARIN 40 MG/0.4 ML SYR SC SCH (11:01)
[2017-05-12] MEDS: FAMOTIDINE 20 MG TAB PO SCH ×2 (11:02→20:43)
[2017-05-12] MEDS: SENNOSIDES/DOCUSATE SODIUM TAB PO SCH ×2 (11:03→20:43)
[2017-05-12] MEDS ORDERED: LR 1,000 ML IV ONE (13:42)
[2017-05-12] MEDS ORDERED: POLYMYXIN B SULFATE 500,000 UNIT/10 ML SYR IRR ONE ×2 (14:15→15:25)
[2017-05-12] MEDS ORDERED: BACITRACIN 50,000 UNITS/10 ML SYR IRR ONE ×2 (14:15→15:26)
[2017-05-12] MEDS ORDERED: BUPIVACAINE/EPI 0.5% 30 ML SDV ONE (14:15)
[2017-05-12] MEDS ORDERED: fentaNYL 100 MCG/2 ML INJ IVP PRN (14:27)
[2017-05-12] MEDS ORDERED: ALBUTEROL 3 ML DEYVIAL IH PRN (14:27)
[2017-05-12] MEDS ORDERED: NALOXONE HCL 0.4 MG/ML INJ IVP PRN (14:27)
[2017-05-12] MEDS ORDERED: HYDROmorphONE/DILAUDID 2 MG/ML INJ IVP PRN (14:27)
--- NOTE | 2017-05-12 14:27 | PDANEPAE ---
ANE History of Present Illness here for knee I and D ANE Past Medical History - Cardiovascular History Hx Hypertension: Yes Hx Arrhythmias: No Hx Chest Pain: No Hx Coronary Artery / Peripheral Vascular Disease: No Hx CHF / Valvular Disease: No Hx Palpitations: No Cardiovascular History Comment: HIGH CHOL - Pulmonary History Hx COPD: No Hx Asthma/Reactive Airway Disease: No Hx Recent Upper Respiratory Infection: No Hx Oxygen in Use at Home: No Hx Sleep Apnea: No Sleep Apnea Screening Result - Last Documented: Positive Pulmonary History Comment: gregory triggers - Neurologic History Hx Cerebrovascular Accident: No Hx Seizures: No Hx Dementia: No Neurologic History Comment: hx of lami - Endocrine History Hx Diabetes: Yes Endocrine History Comment: type 2 - Renal History Hx Renal Disorders: No Renal History Comment: hx of uti's - Liver History Hx Hepatic Disorders: No - Neurological & Psychiatric Hx Hx Neurological and Psychiatric Disorders: No - Cancer History Hx Cancer: No - Congenital Disorder History Hx Congenital Disorders: No - GI History Hx Gastrointestinal Disorders: No - Other Health History Other Health History: wears glasses. PERM BRIDGES UPPER AND LOWER - Chronic Pain History Chronic Pain: Yes (left knee) - Surgical History Prior Surgeries: 04/21/17 left knee I&D with mary. right TKA 07/2013. L TKA ' 13. L KNEE X2. L LEG VEIN STRIPPING X2. LAMI T3-4 ANE Review of Systems Review of systems is: negative Review of Systems: - Exercise capacity Exercise capacity: <4 METS METS (RN): 4 METS ANE Patient History - Allergies Allergies/Adverse Reactions: hydrocodone bitartrate [From [place]] Allergy (Verified 05/09/17 17:42) Vomiting - Home Medications Home medications: home medication list seen and reviewed Home Medications: Aspirin EC [Aspirin EC 81 mg (*)] 81 mg PO DAILY 02/12/15 [Last Taken 05/07/17] [place]-3 Fatty Acids [Fish Oil 1000 mg (*)] 1,000 mg PO DAILY 04/20/17 [Last Taken 05/07/17] Atorvastatin Calcium [Lipitor 40 mg (*)] 40 mg PO DAILY 05/09/17 [Last Taken 04/23] Doxycycline Hyclate [Vibramycin 100 MG (*)] 100 mg PO BID 05/09/17 [Last Taken 05/09/17 AM DOSE] Enalapril Maleate [Vasotec 20 MG (*)] 20 mg PO DAILY 05/09/17 [Last Taken ] metFORMIN HCL [Glucophage 500 mg (*)] 1,000 mg PO BIDMEAL 05/09/17 [Last Taken 05/08/17] traMADol [Ultram 50 mg (*)] 50 mg PO Q6H PRN 05/09/17 [Last Taken Unknown] - NPO status NPO Status: no food or drink >8 hours NPO Since - Liquids (Date): 05/12/17 NPO Since - Liquids (Time): 00:00 NPO Since - Solids (Date): 05/12/17 NPO Since - Solids (Time): 00:00 - Smoking Hx Smoking Status: Former smoker - Family Anes Hx Family Hx Anesthesia Complications: NONE ANE Labs/Vital Signs - Labs Result Diagrams: 05/12/17 05:06 05/12/17 05:06 - Vital Signs Vital Signs: reviewed preoperatively; see RN documention for details Blood Pressure: 152/77 Heart Rate: 66 Respiratory Rate: 16 O2 Sat (%): 94 Height: 193.04 cm Weight: 121.4 kg ANE Physical Exam - Airway Neck exam: FROM Mallampati Score: Class 1 Mouth exam: normal dental/mouth exam - Pulmonary Pulmonary: no respiratory distress - Cardiovascular Cardiovascular: regular rate and rhythym - ASA Status ASA Status: II ANE Anesthesia Plan Anesthesia Plan: GA w LMA
[2017-05-12] MEDS ORDERED: MIDAZOLAM 2 MG/2 ML VIAL IVP ONE (14:36)
[2017-05-12] MEDS ORDERED: fentaNYL 100 MCG/2 ML INJ ONE (15:22)
[2017-05-12] MEDS ORDERED: HYDROmorphONE/DILAUDID 2 MG/ML INJ ONE ×2 (15:22→16:37)
[2017-05-12] MEDS ORDERED: PROPOFOL/EMULSION 500 MG/50 ML BOTTLE IV ONE (15:23)
[2017-05-12] MEDS ORDERED: SODIUM HYPOCHLORITE (DAKINS 1/4 STR) 120 ML BTL TP ONE (15:30)
--- NOTE | 2017-05-12 17:14 | ASMTCMCOM ---
CM Note CM Note Notes: Pt having washout today. DC plan still to go home w/[facility] and HHC; [facility] not able to provide RN. Also, tried the folllowing agencies and they were unable to accept: [facility], [facility], [facility], [facility], [facility]. Waiting to hear back from [facility] at home. CM will follow. Date Signed: 05/12/2017 05:13 PM Electronically Signed By:Lurdes Deal RN
[2017-05-12] MEDS ORDERED: METOCLOPRAMIDE 10 MG/2 ML VIAL IVP PRN (17:15)
--- NOTE | 2017-05-12 17:15 | POSTOPPROG ---
Post Op Note Date of Operation: 05/12/17 Surgeon: Karoline Hayes Telemetry Registered Nurse: jennifer Anesthesiologist: tommy Anesthesia: GET(General Endotracheal) Pre-op Diagnosis: l tkr infection Procedure: l tkr I&D with poly exchange Inf/Abcess present in the surg proc area at time of surgery?: Yes Depth: Deep Incisional (Fascial) EBL: 100-500
[2017-05-12] MEDS ORDERED: LR 1,000 ML IV SCH (17:30)
--- NOTE | 2017-05-12 17:59 | GOP ---
[f rep st] OPERATIVE REPORT DATE OF OPERATION: 05/12/2017 SURGEON: Karoline Hayes MD SWEATBAND CUTTING MACHINE OPERATOR: DANICA Coffman, whose presence was medically necessary. ANESTHESIA: Endotracheal intubation. PREOPERATIVE DIAGNOSIS: Left knee infection. POSTOPERATIVE DIAGNOSIS: Left knee infection. PROCEDURE PERFORMED: Left knee irrigation and debridement with polyethylene exchange. FINDINGS: INDICATIONS: This is a 66-year-old male with a long complicated history of his left knee. He develo ped a superficial infection. It appears to have gone deep within the knee. He has previously underg one a formal irrigation and debridement 3 days ago and is here for definitive washout with polyethyle ne exchange. DESCRIPTION OF PROCEDURE: Patient was brought to the operating room after the left side had been derrick ntified as the correct side by the patient, nurse, and physician. Once in the operating room, he was placed under general anesthesia using endotracheal intubation. Once asleep, he had a tourniquet alanis vaishnavi around the upper portion of left thigh, and the left lower extremity was sterilely prepped and dr aped in usual fashion using GSI solution. Once prepped and draped, limb was elevated for 2 minutes i n order to exsanguinate it. Tourniquet was inflated to 250 mmHg. His prior incision was opened and the sutures were removed. There was no gross purulence noted. Cultures were taken superficial to th e extensor mechanism, and once the extensor mechanism was opened in a medial parapatellar incision, c ultures were taken of the fluid within the knee. The old polyethylene liner was removed. The wound was then thoroughly irrigated with 1 L of castile soap solution vigorously within the intra-articular portion of the knee, particularly his posterior side, the medial lateral gutters, and along the meta l, at which point 1 L of 1/4-strength Dakin solution was irrigated through the wound, and then 3 L of antibiotic solution were irrigated through the wound and then the joint. Once completed, a new size 7 x 13 mm Triathlon polyethylene liner was placed in the tibial tray. Once locked into place, the w ound was closed using 0 Vicryl suture in [id number] type stitch for the extensor mechanism, 0 Vi cryl was used for subcutaneous layers, and corina used for the skin. Tourniquet was released at 63 minutes. The wound was then dressed with Xeroform, 4 x 4, wrapped in Kerlix. Leg was completely und raped in the operating room, tourniquet was removed from the thigh, and Michael wrap placed around the kn ee. Patient then had a knee immobilizer placed on the left lower extremity. He was then woken up, e xtubated, transferred onto a bed, and sent to recovery room in good condition. TOURNIQUET TIME: 63 minutes. /[id number]/MODL
[2017-05-12] MEDS ORDERED: ceFAZolin 2 GM/DEXTROSE 100 ML IV SCH (22:00)
[2017-05-13] MEDS: ACETAMINOPHEN 325 MG TAB PO SCH ×5 (01:13→23:24)
[2017-05-13] MEDS: traMADol 50 MG TAB PO SCH ×5 (01:13→23:25)
[2017-05-13] MEDS: KETOROLAC 30 MG/1 ML SDV IVP SCH ×5 (01:13→23:24)
[2017-05-13] MEDS: ceFAZolin 2 GM/SWFI 2 GM/20 ML SYR IVP SCH ×3 (05:07→20:18)
[2017-05-13] MEDS: SENNOSIDES/DOCUSATE SODIUM TAB PO SCH ×2 (09:21→20:18)
[2017-05-13] MEDS: RIVAROXABAN 10 MG TAB PO SCH (09:21)
[2017-05-13] MEDS: FAMOTIDINE 20 MG TAB PO SCH ×2 (09:21→20:18)
[2017-05-13] MEDS: metFORMIN HCL 500 MG TAB PO SCH ×2 (09:22→17:58)
[2017-05-13] MEDS: ENOXAPARIN 40 MG/0.4 ML SYR SC SCH (09:25)
--- NOTE | 2017-05-13 13:24 | SOAPPROG ---
SOAP Progress Note Assessment/Plan: Assessment: Plan: Subjective: states his pain is under control dressing C&D with foot NVI cont abx await IV abx for home arranged Objective: Vital Signs Temp Pulse Resp BP Pulse Ox 36.9 C 72 16 133/74 H 97 05/13/17 04:48 05/13/17 07:48 05/13/17 07:48 05/13/17 07:48 05/13/17 07:48 Microbiology 05/12/17 16:04 Gram Stain - Final Knee - Swab 05/12/17 16:04 Gram Stain - Final Knee - Eswab 05/09/17 12:36 Gram Stain - Final Knee - Tissue 05/09/17 12:36 Gram Stain - Final Knee - Eswab 05/09/17 12:36 Gram Stain - Final Knee - Eswab 05/09/17 12:36 Gram Stain - Final Knee - Aspirate Laboratory Results 05/13/17 05:15 05/12/17 05:06 05/12/17 05/13/17 05/14/17 05:59 05:59 05:59 Intake Total 1200 1100 Output Total 900 925 Balance 300 175 ICD10 Worksheet Patient Problems: Problems Problem Status Onset Arthritis of knee, right Acute Septic arthritis of knee, right Acute
--- NOTE | 2017-05-13 17:12 | PCMIDPN ---
Assessment/Plan: Assessment/Plan: 1. Possible prothetic knee infection: - Cultures from 04/21/17 with Staph epi, sensitive to Ancef. Synovial fluid analysis reviewed. - s/p two wash outs and poly exchange on 05/09 and 05/12 respectively - Cultures from those with ngtd. Reviewed culture data with patient -Pt had questions regarding CRP, and I reviewed that as well - Care coordinated with case management and RN -Still trying to find home health agency etc, thus discharge in progress pending that - [facility] already completed on 05/11/17 and case management aware. Meds Ancef 2g q8- Subjective: afebrile. having pain involving left knee after yesterdays wash out. denies sob , abd pain, diarrhea. Objective: Vital Signs Temp Pulse Resp BP Pulse Ox 37.0 C 74 16 138/70 H 94 05/13/17 16:12 05/13/17 16:12 05/13/17 16:12 05/13/17 16:12 05/13/17 16:12 Microbiology 05/09/17 12:36 Gram Stain - Final Knee - Tissue 05/09/17 12:36 Gram Stain - Final Knee - Eswab 05/09/17 12:36 Gram Stain - Final Knee - Eswab 05/09/17 12:36 Gram Stain - Final Knee - Aspirate 05/12/17 16:04 Gram Stain - Final Knee - Swab 05/12/17 16:04 Gram Stain - Final Knee - Eswab Laboratory Results 05/13/17 05:15 05/12/17 05:06 05/12/17 05/13/17 05/14/17 05:59 05:59 05:59 Intake Total 1200 1100 Output Total 900 925 Balance 300 175 C-Reactive Protein 85.9 mg/L (<10.0) H 05/12/17 05:06 - Physical Exam General Appearance: alert, no apparent distress Respiratory: lungs clear Cardiac/Chest: regular rate, rhythm Extremities: other (RUE picc line noted, no swelling) Abdomen: normal bowel sounds, non-tender, soft, No distended Skin: other (LEFt knee dressed, in immoblizer.) - Time Spent With Patient Time Spent with Patient: greater than 35 minutes Time Spent with Patient: Greater than 35 minutes spent on this patients care, greater than 50% of time spent counseling, educating, and coordinating care regarding the above mentioned plan. ICD10 Worksheet Patient Problems: Problems Problem Status Onset Arthritis of knee, right Acute Septic arthritis of knee, right Acute
--- NOTE | 2017-05-13 17:31 | ASMTCMCOM ---
CM Note CM Note Notes: DC plan remains to dc home w/[facility], still trying to find HHC agency that can accept for nursing (please see 05/12 CM note, also [facility] unable to accept). Staffing issues or insurance are main issues in difficulty finding hhc. Several more referrals sent out today, waiting to hear back. Spoke w/yojana from [facility] to see if there was a way they could fit him in to schedule; she said to check back with them tomorrow. Pt is familiar w/[facility] as they have done nursing in past for him. Pt would like to have home PT also but said he is willing to forgo that if [facility] is able to accept and we cannot find other HHC agency. Pt lives at home w/supportive . Pt will likely be ready for dc tomorrow if we can confirm HHC. Date Signed: 05/13/2017 05:31 PM Electronically Signed By:Lurdes Deal RN
[2017-05-14] MEDS: traMADol 50 MG TAB PO SCH ×4 (05:29→23:40)
[2017-05-14] MEDS: ACETAMINOPHEN 325 MG TAB PO SCH ×4 (05:29→23:40)
[2017-05-14] MEDS: KETOROLAC 30 MG/1 ML SDV IVP SCH ×2 (05:29→11:52)
[2017-05-14] MEDS: ceFAZolin 2 GM/SWFI 2 GM/20 ML SYR IVP SCH ×3 (05:30→20:16)
[2017-05-14] MEDS: metFORMIN HCL 500 MG TAB PO SCH ×2 (09:47→17:59)
[2017-05-14] MEDS: FAMOTIDINE 20 MG TAB PO SCH ×2 (09:47→20:17)
[2017-05-14] MEDS: RIVAROXABAN 10 MG TAB PO SCH (09:47)
[2017-05-14] MEDS: SENNOSIDES/DOCUSATE SODIUM TAB PO SCH ×2 (09:47→20:17)
--- NOTE | 2017-05-14 15:43 | SOAPPROG ---
SOAP Progress Note Assessment/Plan: Assessment: Plan: Subjective: states he's comfortable no change in dressings passed PT await placement tomrrow Objective: Vital Signs Temp Pulse Resp BP Pulse Ox 36.7 C 75 16 138/70 H 92 05/13/17 23:22 05/13/17 23:22 05/13/17 23:22 05/13/17 23:22 05/13/17 23:22 Microbiology 05/12/17 16:04 Gram Stain - Final Knee - Eswab 05/12/17 16:04 Gram Stain - Final Knee - Swab 05/09/17 12:36 Gram Stain - Final Knee - Tissue 05/09/17 12:36 Gram Stain - Final Knee - Eswab 05/09/17 12:36 Gram Stain - Final Knee - Eswab 05/09/17 12:36 Gram Stain - Final Knee - Aspirate Laboratory Results 05/14/17 05:34 05/12/17 05:06 05/13/17 05/14/17 05/15/17 05:59 05:59 05:59 Intake Total 1100 Output Total 925 1050 Balance 175 -1050 ICD10 Worksheet Patient Problems: Problems Problem Status Onset Arthritis of knee, right Acute Septic arthritis of knee, right Acute
--- NOTE | 2017-05-14 15:55 | ASMTCMCOM ---
CM Note CM Note Notes: CM call to [facility] , spoke with Ramos, they are not able to take patient due to staff availability, could possibly accept after Monday. CM call to [facility], spoke with Sonal/Pharmacist, she states she spoke with head nurse, they cannot accept the patient today but imagines there would be a possibility for tomorrow. CM spoke with patient and , he was eager to go home today and states understanding we are waiting for agency availablity/ability to accept. Patient states both interest in [facility] as he has worked with them in the past and also would like it if we could continue to look into that also has rehab. PT notes recommend home vs. outpatient rehab. CM informed floor nurse and Dr. Hayes. D/C plan: D/C to [facility], possibly with PT if possible. Date Signed: 05/14/2017 03:55 PM Electronically Signed By:Laura Avendano
[2017-05-15] MEDS: traMADol 50 MG TAB PO SCH ×2 (05:11→11:05)
[2017-05-15] MEDS: ACETAMINOPHEN 325 MG TAB PO SCH ×2 (05:11→11:05)
[2017-05-15] MEDS: ceFAZolin 2 GM/SWFI 2 GM/20 ML SYR IVP SCH ×2 (05:12→13:15)
[2017-05-15 07:43] VITALS: BP 145/76
[2017-05-15] MEDS: metFORMIN HCL 500 MG TAB PO SCH (08:35)
[2017-05-15] MEDS: FAMOTIDINE 20 MG TAB PO SCH (08:36)
[2017-05-15] MEDS: RIVAROXABAN 10 MG TAB PO SCH (08:36)
[2017-05-15] MEDS: SENNOSIDES/DOCUSATE SODIUM TAB PO SCH (08:37)
--- NOTE | 2017-05-15 14:24 | SOAPPROG ---
SOAP Progress Note Assessment/Plan: Assessment: Plan: 05/10/17 12:58 -d/c home 05/11/17 12:44 05/15/17 14:24 Subjective: Doing well, ready to d/c Objective: Vital Signs Temp Pulse Resp BP Pulse Ox 36.8 C 66 16 145/76 H 94 05/15/17 07:39 05/15/17 07:39 05/15/17 07:39 05/15/17 07:39 05/15/17 07:39 Microbiology 05/12/17 16:04 Gram Stain - Final Knee - Eswab 05/12/17 16:04 Gram Stain - Final Knee - Swab 05/09/17 12:36 Gram Stain - Final Knee - Tissue 05/09/17 12:36 Gram Stain - Final Knee - Eswab 05/09/17 12:36 Gram Stain - Final Knee - Eswab 05/09/17 12:36 Gram Stain - Final Knee - Aspirate Laboratory Results 05/14/17 05:34 05/12/17 05:06 05/14/17 05/15/17 05/16/17 05:59 05:59 05:59 Intake Total 737 Output Total 7537 1375 650 Balance -1050 -638 -650 dressing cdi, calf nt, nvi - Time Spent With Patient Time Spent With Patient: 10 - Pending Discharge Pending Discharge Within 24 Hours: Yes Pending Discharge Date: 05/16/17 Pending Discharge Time: 11:00 ICD10 Worksheet Patient Problems: Problems Problem Status Onset Arthritis of knee, right Acute Septic arthritis of knee, right Acute
--- NOTE | 2017-05-15 14:39 | ASMTCMCOM ---
CM Note CM Note Notes: Pt medically stable for d/c with [facility] for home infusion and RN. Orders sent in [employer]. Date Signed: 05/15/2017 02:38 PM Electronically Signed By:ANEUDY Lopez
--- NOTE | 2017-05-15 16:03 | ASDISCHSUM ---
Discharge Information Plan Status:IV ABX/Infusion Medically Cleared to Leave: Discharge Date:05/15/2017 02:53 PM D/C Disposition: ADT D/C Disposition:Home, Routine, Self-Care Projected Discharge Date:05/14/2017 11:00 AM Transportation at D/C:Family Discharge Delay Reason: Follow-Up Date:05/14/2017 11:00 AM Discharge Slot: Final Diagnosis: Placement Information Referral Type:Home Infusion Referral ID:[id number] Provider Name:[facility] [place] [facility] Address 1:[address] Address 2: City:[place] Selection Factors: State:[place] Referral Type:*Home Health Care Services Referral ID:[id number] Provider Name: Address 1: Phone Number: Address 2: Fax Number: City: Selection Factors: State: Patient Contact Information Contact Name:DELANEY Relationship: Address:[address] [facility] Work Phone: City:[place] Alternate Phone: [facility]/Zip Code:[place] [address] Email: Financial Information Financial Class:[employer] Primary Plan Desc:[employer] [facility] Primary Plan Number:[id number] Secondary Plan Desc:MEDICARE INPATIENT Secondary Plan Number:[id number] Assessment Information [facility] CM Progress Note CM Note CM Note Notes: Patient admitted for an I&D of his left knee. Cultures are pending, and patient is being treated empirically with IV Ancef. ID is following. Patient is normally independent, lives with . PT/OT have been ordered. Case Management will follow for discharge planning. Date Signed: 05/10/2017 11:20 AM Electronically Signed By:Radhika Anaya RN [facility] CM Progress Note CM Note CM Note Notes: Pt will need home IV antibiotics, current transfer of care indicates cefaxoline IV continuous infusion. Referral sent to [facility] who can accept pt. Pt may also need home OT in addition to home health RN, PT rec home. CM to follow. Date Signed: 05/11/2017 03:46 PM Electronically Signed By:ANEUDY Lopez [facility] CM Progress Note CM Note CM Note Notes: Pt having washout today. DC plan still to go home w/[facility] and [facility]; [facility] not able to provide RN. Also, [facility] and [facility] were [facility] to [facility]: [facility], [facility], [facility], [facility], [facility]. Waiting to hear back from [facility] at home. CM will follow. Date Signed: 05/12/2017 05:13 PM Electronically Signed By:Lurdes Deal RN [facility] CM Progress Note CM Note CM Note Notes: DC plan remains to dc home w/[facility] [place], still trying to find [facility] agency that can accept for nursing (please see 05/12 CM note, also [facility] unable to accept). Staffing issues or insurance are main issues in difficulty finding [facility]. Several more referrals sent out today, waiting to hear back. Spoke w/yojana from [facility] to see if there was a way they could fit him in to schedule; she said to check back with them tomorrow. Pt is familiar w/[facility] as they have done nursing in past for him. Pt would like to have home PT also but said he is willing to forgo that if [facility] is able to accept and we cannot find other [facility] agency. Pt lives at home w/supportive . Pt will likely be ready for dc tomorrow if we can confirm HHC. Date Signed: 05/13/2017 05:31 PM Electronically Signed By:Lurdes Deal RN [facility] CM Progress Note CM Note CM Note Notes: CM call to [facility] , spoke with Ramos, they are not able to take patient due to staff availability, could possibly accept after Monday. CM call to [facility], spoke with Sonal/Pharmacist, she states she spoke with head nurse, they cannot accept the patient today but imagines there would be a possibility for tomorrow. CM spoke with patient and , he was eager to go home today and states understanding we are waiting for agency availablity/ability to accept. Patient states both interest in [facility] as he has worked with them in the past and also would like it if we could continue to look into that also has rehab. PT notes recommend home vs. outpatient rehab. CM informed floor nurse and Dr. Hayes. D/C plan: D/C to [facility], possibly with PT if possible. Date Signed: 05/14/2017 03:55 PM Electronically Signed By:Laura Avendano [facility] CM Progress Note CM Note CM Note Notes: Pt medically stable for d/c with [facility] for home infusion and RN. Orders sent in [employer]. Date Signed: 05/15/2017 02:38 PM Electronically Signed By:ANEUDY Lopez Intervention Information Intervention Type:*IGLESIA-Signed Date of Service:05/10/2017 01:58 PM Patient Type:Observation Staff Member:Angela Connolly Hours: Discipline: Severity: Comment:
== END 2017-05-15 14:53 | disposition home or self-care (01) | DRG 467 ==
LOC: FSGY 09:48 → OBSVTOIN 14:23 → F3N 14:23
PROVIDERS: ADMIT Orthopaedic Surgery; ATTEND Orthopaedic Surgery
PROC: 0S9D0ZX Drainage of Left Knee Joint, Open Approach, Diagnostic (ICD-10-PCS; 2017-05-09)
PROC: 02HV33Z Insertion of Infusion Device into Superior Vena Cava, Percutaneous Approach (ICD-10-PCS; 2017-05-09)
PROC: B51M1ZZ Fluoroscopy of Right Upper Extremity Veins using Low Osmolar Contrast (ICD-10-PCS; 2017-05-09)
PROC: B5181ZA Fluoroscopy of Superior Vena Cava using Low Osmolar Contrast, Guidance (ICD-10-PCS; 2017-05-09)
PROC: 0S9D0ZX Drainage of Left Knee Joint, Open Approach, Diagnostic (ICD-10-PCS; principal; 2017-05-12 14:30)
PROC: 0SPD09Z Removal of Liner from Left Knee Joint, Open Approach (ICD-10-PCS; principal; 2017-05-12 14:30)
PROC: 0SRW0JZ Replacement of Left Knee Joint, Tibial Surface with Synthetic Substitute, Open Approach (ICD-10-PCS; principal; 2017-05-12 14:30)
DX: T84.54XA Infection and inflammatory reaction due to internal left knee prosthesis, initial encounter (principal); M00.062 Staphylococcal arthritis, left knee; B95.61 Methicillin susceptible Staphylococcus aureus infection as the cause of diseases classified elsewhere; Z96.653 Presence of artificial knee joint, bilateral; I10 Essential (primary) hypertension; E78.00 Pure hypercholesterolemia, unspecified; E11.9 Type 2 diabetes mellitus without complications; E66.9 Obesity, unspecified; Y79.2 Prosthetic and other implants, materials and accessory orthopedic devices associated with adverse incidents
CPT/HCPCS: 97110-GP; 97116-GP; 97161-GP; 97165-GO; 97168-GO; 97530-GP; 97535-GO; C1751; G0378; G8987-GO-CJ; G8988-GO-CI; G8989-GO-CI; J0690; J1170; J1650; J1885; J2250; J2405; J2704; J2780; J2795; J3010; L1832

== ENCOUNTER → 2017-10-23 | Outpatient (CLI) | payer OTHER | LOC: BMCIMAGING 13:25 → EDSTATUS 13:26 | PROVIDERS: ATTEND Family Medicine | DX: J98.4 Other disorders of lung (principal) ==